=== PATIENT | female | born 1955 | race Caucasian/White ===

== ENCOUNTER 2017-12-16 12:39 | Emergency (ER) | payer MEDICARE, OTHER ==
[~2017-12-16] VITALS: Ht 167.6 cm; Wt 70.0 kg
[~2017-12-16 12:39] MED LIST: ALTOPREV40 MG PO; AMOXICILLIN/CL875 MG PO; AMOXICILLIN500 MG PO; AMOXICILLIN875 MG OR; AUGMENTIN500 MG OR; BENZONATATE200 MG PO; CIPRO500 MG PO; CIPROFLOXACN500 MG PO; DARVOCET N-100100 - OR; DILAUDID2 MG PO; FISH OIL1000 MG PO; GERITOL COMPLETE PO; HYDROXYZ HCL25 MG PO; KEFLEX500 MG PO; LORTAB 5 OR; MEDDOSEPAK OR; MEDDOSEPAK PO; MUCINEX600 MG PO; NAPROSYN500 MG OR; NO MEDS; PROAIR HFA IN; ROCEPHIN 1 GM1 GM IM; SOLU-MEDROL125 MG IM; TAM75CAP OR; TRIAMCINOLON0.11 EX; VITAMIN B-12500 MCG PO
[2017-12-16 13:56] VITALS: BP 128/88
== END 2017-12-16 15:03 | disposition home or self-care (01) ==
LOC: ED 12:39
PROC: 0HQ0XZZ Repair Scalp Skin, External Approach (ICD-10-PCS; principal; 2017-12-16)
DX: S01.01XA Laceration without foreign body of scalp, initial encounter (principal); W20.8XXA Other cause of strike by thrown, projected or falling object, initial encounter

== ENCOUNTER 2017-12-24 16:49 | Emergency (ER) | payer MEDICARE, OTHER ==
[~2017-12-24] VITALS: Ht 167.6 cm; Wt 70.0 kg
[2017-12-24 17:17] VITALS: BP 134/99
== END 2017-12-24 17:29 | disposition home or self-care (01) ==
LOC: ED 16:49
DX: S01.01XD Laceration without foreign body of scalp, subsequent encounter (principal)

== ENCOUNTER 2019-02-28 08:48 | Observation (INO) | payer MEDICARE, OTHER ==
[~2019-02-28] VITALS: Ht 167.6 cm; Wt 66.2 kg
--- NOTE | 2019-02-28 08:49 | NUR ---
PT BROUGHT BACK TO ER PER W/C, NOTIFIED AND IN ROOM SPEAKING WITH PT. AT BEDSIDE
[2019-02-28] MEDS ORDERED: CHILD ASA81 MG PO (09:14)
[2019-02-28] MEDS ORDERED: VITAMIN D2000 UNI1 PO (09:15)
[2019-02-28] MEDS ORDERED: FOLIC ACID 400 MCG PO (09:15)
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
[2019-02-28 09:21] LABS: HEMATOCRIT 38.6 % (37.0-47.0); HEMOGLOBIN 12.7 g/dl (12.0-16.0); IMMATURE GRANULOCYTES 0.3 % (0.0-5.0); MEAN CELL VOLUME 89.8 fL CALC (80.0-100.0); MEAN CORPUSCULAR HGB 29.5 pG CALC (26.0-32.0); MEAN CORPUSCULAR HGB CONC 32.9 g/L CALC (32.0-36.0); NEUT# 3.84 thou/uL (2.00-7.15); RED BLOOD COUNT 4.3 mill/uL (4.20-5.60); RED CELL DISTRI WIDTH 13.3 % (11.5-15.5)
[2019-02-28 09:36] LABS: ANION GAP 13 (6-22 (CALC)); BUN 12 mg/dL (8-23); BUN/CREATININE RATIO 22 (12-20 (CALC)); CARBON DIOXIDE 24 mmol/l (22-30); CHLORIDE 107 mmol/l (95-108); CREATININE 0.6 mg/dL (0.5-1.0); GFR > 60 ML/MIN (>=60 (CALC)); GFR FOR AFR.AMER. > 60 ML/MIN (>=60 (CALC)); POTASSIUM 3.8 mmol/l (3.5-5.1); SODIUM 140 mmol/l (137-146)
--- NOTE | 2019-02-28 09:36 | NUR ---
MEDICATED WITH BABY ASA AND NTG SL, PT SITTING UP ON STRETCHER, VISITING WITH SPOUSE AND MECHANICAL MAINTENANCE ENGINEER, NO S/S OF DISCOMFORT OR DISTRESS NTOED, WILL CONTINUE TO MONITOR
--- NOTE | 2019-02-28 10:28 | NUR ---
PT INSTRUCTED ON BEE CARE PRIOR TO URINE COLLECTION, SUPPLIES PROVIDED AND PT AMBULATED TO BATHROOM WITH STEADY GAIT.
--- NOTE | 2019-02-28 11:30 | NUR ---
REPORT GIVEN TO LAWSON QUINONES ON MED SURG
--- NOTE | 2019-02-28 11:55 | NUR ---
PT TRASNPORTED TO MED SURG ON TELE ROM 278 VIA WHEELCHAIR PT ABLE TO TO STAND AND TRASNFER WITH STEADY GAIT, NURSE LAWSON PRESENT ON ARRIVAL TO UNIT. ALL BELONGINGS WITH PT.
[2019-02-28 12:04] VITALS: BP 138/89
--- NOTE | 2019-02-28 12:04 | NUR ---
PT ARRIVED VIA WHEELCHAIR ACCOMPANIED BY ER NURSE. PT ALERT AND ORIENTED X3, AMBULATED TO STANDING SCALE THEN TO BED WITH STEADY GAIT. ORIENTED PT TO ROOM AND CALL LIGHT, DISCUSSED POC. PT VERBALIZED UNDERSTANDING. SKIN INTACT, LUNGS CLEAR, RA. TEDS APPLIED,ADMISSION ASSESSMENT COMPLETED, CALL LIGHT IN REACH,CONTINUE TO MONITOR.
--- NOTE | 2019-02-28 12:04 | NUR ---
LUNCH TRAY PROVIDED TO PT
--- NOTE | 2019-02-28 13:00 | NUR ---
AND DICK AT BEDSIDE
[2019-02-28 15:05] VITALS: BP 112/74
--- NOTE | 2019-02-28 17:35 | NUR ---
PT EATING DINNER, VISITOR AT BEDSIDE, CALL LIGHT IN REACH,CONTINUE TO MONITOR.
[2019-02-28 19:10] VITALS: BP 130/84
--- NOTE | 2019-02-28 19:10 | NUR ---
REPORT RECEIVED FROM JONI LARSEN. PT RESTING IN BED FAMILY AT BEDSIDE. NO S/S OF DISTRESS AT THIS TIME. SAFETY PRCAUTIONS IN PLACE. WILL CONTINUE TO MONITOR.
--- NOTE | 2019-02-28 20:14 | NUR ---
PT RESTING IN BED. ALERT AND ORIENTED. RESPIRATIONS EVEN AND UNLABORED ON RA. LUNGS SOUND CLEAR. PEDAL PULSES STRONG. PT DENIES ANY PAIN OR DISCOMFORT AT THIS TIME. #20 LAC PATENT AND APPEARS HEALTHY. TELE IN PLACE. CALL [place] WITHIN REACH. PT PROVIDED WITH SNACK AND DRINK PER REQUEST. WILL CONTINUE TO MONITOR.
[2019-02-28 23:45] VITALS: BP 118/79
--- NOTE | 2019-03-01 00:10 | NUR ---
PT RESTING IN BED. RESPIRATIONS EVEN AND UNLABORED ON RA. NO S/S OF DISTRESS AT THIS TIME. TELE IN PLACE. WILL CONTINUE TO MONITOR.
[2019-03-01 04:18] VITALS: BP 132/82
--- NOTE | 2019-03-01 04:29 | NUR ---
PT RESTING IN BED. TELE IN PLACE. RESPIRATIONS EVEN AND UNLABORED ON RA. NO S/S OF DISTRESS AT THIS TIME. WILL CONTINUE TO MONITOR.
[2019-03-01 07:30] VITALS: BP 131/83
--- NOTE | 2019-03-01 07:30 | NUR ---
PT RESTING IN BED EATING BREAKFAST, NO SIGNS OF DISTRESS NOTED, RESP EVEN AND UNLABORED. PT ALERT AND ORIENTED X3, DENIES ANY PAIN OR DISCOMFORT AT THIS TIME. DISCUSSED POC, ASSESSMENT COMPLETED, CALL LIGHT IN REACH,CONTINUE TO MONITOR.
--- NOTE | 2019-03-01 09:08 | NUR ---
PT MEDICATED WITH TORADOL IV FOR MIDSTERNAL PAIN. NOTED YELLOW/GREEN BRUISE TO CHEST, PT STATES IT WAS WORSE BEFORE. CALL LIGHT IN REACH,CONTINUE TO MONITOR.
[2019-03-01 11:26] VITALS: BP 118/82
--- NOTE | 2019-03-01 11:45 | NUR ---
PT EATING LUNCH, VOICES NO NEEDS OR COMPLAINTS AT THIS TIME. CALL LIGHT IN REACH,CONTINUE TO MONITOR.
[2019-03-01] MEDS ORDERED: IBUPROFEN600 MG PO (12:23)
[2019-03-01] MEDS ORDERED: ATORVASTATIN CA10 MG PO (12:23)
--- NOTE | 2019-03-01 13:10 | NUR ---
PT RESTING IN BED, DISCUSSED DISCHARGE EDUCATION PT VERBALIZED UNDERSTANDING. IV REMOVED, CATHETER INTACT. PRESCRIPTIONS GIVEN. TELE REMOVED. CALL LIGHT IN REACH,CONTINUE TO MONITOR.
--- NOTE | 2019-03-01 13:32 | NUR ---
Discharge instructions given. Patient verbalizes understanding of same. Discharged in stable condition via Wheelchair to Home with spouse. All belongings sent with pt.
== END 2019-03-01 13:30 | disposition home or self-care (01) ==
LOC: ED 08:48 → ED-I 10:18 → ED 10:47 → MS2 10:48
PROVIDERS: Family Medicine; ADMIT Internal Medicine; ATTEND Internal Medicine
DX: R07.89 Other chest pain (principal); S20.219A Contusion of unspecified front wall of thorax, initial encounter; I20.9 Angina pectoris, unspecified; I10 Essential (primary) hypertension; E78.00 Pure hypercholesterolemia, unspecified; X58.XXXA Exposure to other specified factors, initial encounter; Y93.89 Activity, other specified

== ENCOUNTER 2019-11-23 06:47 | Day surgery (SDC) | payer MEDICARE, OTHER ==
[~2019-11-23] VITALS: Ht 170.2 cm; Wt 61.7 kg
[~2019-11-23 06:47] MED LIST changes: +ALENDRONATE SOD70 MG PO; +ATORVASTATIN CA10 MG PO; +CENTRU3 PO; +CHILD ASA81 MG PO; +FOLIC ACID 400 MCG PO; +IBUPROFEN600 MG PO; +VITAMIN B121000 MCG PO; +VITAMIN D2 PO; +VITAMIN D2000 UNI1 PO; +VITAMIN D32000 UNIT PO
[2019-11-23 08:56] VITALS: BP 133/86
== END 2019-11-23 09:23 | disposition home or self-care (01) ==
LOC: ENDO 06:47 → ORM 07:45 → ENDO 07:45
PROVIDERS: ATTEND Surgery
PROC: 0DJD8ZZ Inspection of Lower Intestinal Tract, Via Natural or Artificial Opening Endoscopic (ICD-10-PCS; principal; 2019-11-23)
DX: K64.8 Other hemorrhoids (principal); Z11.59 Encounter for screening for other viral diseases

== ENCOUNTER 2020-05-02 16:20 | Emergency (ER) | payer MEDICARE, OTHER ==
[~2020-05-02] VITALS: Ht 170.2 cm; Wt 65.0 kg
[2020-05-02] MEDS ORDERED: MULTIVITAMI1 PO (16:45)
[2020-05-02] MEDS ORDERED: ATORVASTATIN CA10 MG PO (16:46)
[2020-05-02 17:35] VITALS: BP 127/60
== END 2020-05-02 17:35 | disposition home or self-care (01) ==
LOC: ED 16:20
DX: S52.501A Unspecified fracture of the lower end of right radius, initial encounter for closed fracture (principal); W17.89XA Other fall from one level to another, initial encounter; Y92.009 Unspecified place in unspecified non-institutional (private) residence as the place of occurrence of the external cause

== ENCOUNTER 2021-09-30 19:42 | Emergency (ER) | payer MEDICARE, OTHER ==
[~2021-09-30] VITALS: Ht 170.2 cm; Wt 65.0 kg
[2021-09-30] VITALS (7 sets, daily range): BP systolic 100–156; BP diastolic 66–99
[~2021-09-30 19:42] MED LIST changes: +MULTIVITAMI1 PO
[2021-09-30] MEDS ORDERED: TRAMADOL HCL50 MG PO (21:15)
[2021-09-30] MEDS ORDERED: VOLTAREN75 MG PO (21:15)
== END 2021-09-30 21:36 | disposition home or self-care (01) ==
LOC: ED 19:42
DX: M25.552 Pain in left hip (principal); Z87.81 Personal history of (healed) traumatic fracture

== ENCOUNTER 2022-09-13 18:59 | Emergency (ER) | payer MEDICARE, OTHER ==
[~2022-09-13] VITALS: Ht 170.2 cm; Wt 67.0 kg
[~2022-09-13 18:59] MED LIST changes: +TRAMADOL HCL50 MG PO; +VOLTAREN75 MG PO
[2022-09-13] MEDS ORDERED: ZPAK PO (19:28)
[2022-09-13] MEDS ORDERED: MAXITROL 0.1 %1 SUS OD (19:28)
[2022-09-13 19:46] VITALS: BP 151/100
== END 2022-09-13 19:53 | disposition home or self-care (01) ==
LOC: ED 18:59
DX: H00.12 Chalazion right lower eyelid (principal)